=== PATIENT | male | born 1990 | race Asian ===

== ENCOUNTER 2018-09-26 20:59 | Emergency (ER) | payer OTHER ==
[~2018-09-26] VITALS: Ht 165.1 cm; Wt 83.9 kg
[2018-09-26 21:08] VITALS: Ht 165.1 cm; Wt 83.9 kg
[2018-09-26 21:32] VITALS: BP 134/92
== END 2018-09-26 21:32 | disposition other institution (70) ==
LOC: ED 20:59
DX: R07.89 Other chest pain (principal); Z13.89 Encounter for screening for other disorder; J45.909 Unspecified asthma, uncomplicated

== ENCOUNTER 2018-09-26 20:59 | Emergency (ER) | payer OTHER | END 2018-09-26 21:32 | disposition other institution (70) | LOC: ED 20:59 | DX: Z02.89 Encounter for other administrative examinations (principal) ==